=== PATIENT | male | born 1935 | race Caucasian/White ===

== ENCOUNTER 2017-03-15 09:13 | Day surgery (SDC) | payer MEDICARE, MEDICAID, SELFPAY ==
[2017-03-14 13:42] VITALS: BMI 22.0
[2017-03-15] VITALS (7 sets, daily range): BP systolic 103–159; BP diastolic 58–84; PULSE 71–80; RESP 16–18; TEMP 36.4–36.6; O2SAT 93–97
--- NOTE | 2017-03-15 10:39 | HMH.ANESCL ---
[facility] Anesthesia Checklist - Patient Identification Patient Identification: Arm Band - Structural Data Admitted From: Home Planned Operative Procedure/s: Biventricular Pacemaker Consent for Planned Operative Procedure(s) Verified: Yes Verified Documents: Surgical Consent, History and Physical - NPO Status Verified Time NPO: 00:00 - Additional verifications Anesthesia Reactions: No - Airway Assessment C-Spine Mobility Assessed: Yes (MP2) TMJ Mobility Assessed: Yes Dentition: Poor Dentition - Neurological Assessment Level of Consciousness: Awake, Alert - Anesthesia Plan Anesthesia Risk discussed: Yes Anesthesia Plan: Verified ASA Class: III Anesthesia Type: MAC [facility] Anesthesia HX I have reviewed the patient's past medical history: Yes Medical History: Reports:: Atrial Fibrillation, Cancer (colon), Congestive Heart Failure, Chronic Obstructive Pulmonary Disease (COPD), Coronary Artery Disease, Home Oxygen, Hyperlipidemia, Hypertension, Internal Pacemaker, Renal Insufficiency Denies:: Diabetes Mellitus Type 1, Diabetes Mellitus Type 2, MRSA, Seizures Other Medical History: Denies: Blood Transfusion Reaction Laterality Cases: Bilateral: Tonsillectomy Other Surgeries: Yes: Colon Resection, Pacemaker Amputation: No Fractures: No Comment: back, keisha, ankle, cabg *Family Hx:: No significant family history
--- NOTE | 2017-03-15 14:50 | XR_ITS ---
XR chest portable HISTORY: ITS.REASON: POST OP PACEMAKER ORDERING PHYSICIAN: Mick Longoria MD PATIENT AGE: 81 years COMPARISON: None available FINDINGS: There has been insertion of a biventricular pacemaker with a AICD and right atrial lead. These are in good position. No radiographic evidence of complication. No evidence of pneumothorax. There has been a prior median sternotomy. There is borderline cardiomegaly without failure. Patchy density is present in the right infrahilar region and could be due to atelectasis or infiltrate.. IMPRESSION: Status post pacemaker placement as described above with no obvious complications. Atelectasis or infiltrate in the right infrahilar region.
--- NOTE | 2017-05-03 07:20 | HMH.CRT-D ---
[facility] [employer]ACE RELATIONS PROFESSOR-D - RACE RELATIONS PROFESSOR-D Date of Procedure:: 03/15/17 Procedures:: 1. Pocket formation for biventricular pacemaker generator with cardiac resynchronization/defibrillator therapy. 2. Placement atrial sensing and pacing lead into the right atrial appendage. 3. Placement of right ventricular sensing pacing and shocking lead in the right ventricular apex. 4. Placement of left ventricular sensing pacing lead via the coronary sinus. 5. Permanent cardiac resynchronization therapy with AICD implantation/biventricular pacemaker. 6. Extraction of chronic right atrial appendage sensing and pacing lead 7. Extraction of chronic right ventricular sensing pacing lead 8. Removal of old pacemaker generator Indication for test:: Ischemic cardiomyopathy systolic congestive heart failure with ejection fraction less than 35% Widened QRS greater than 120 ms Last 3-4 [place] [facility] congestive heart failure Informed consent:: Obtained prior to procedure. Complications:: None EBL:: Less than 10 ml. Technique:: 1% lidocaine with epinephrine used to anesthetize the left anterior aspect of the chest. Scalpel was used to make the initial cutaneous incision while electrocautery was used to dissect down into the fascia. The fascia was lifted off the pectoralis muscle and digitally manipulated creating a pocket for the pacemaker. The patient was then placed in Trendelenburg position and subclavian vein was accessed via the Seldinger technique on 3 separate occasions. 3 wires were left into the subclavian vein. Wire was placed into the right atrial lead in the screw was retracted into the lead piercing manual pressure the right atrial lead was extracted from the right atrium and explanted from the body. The same technique was then performed with the right ventricular lead and the right ventricular lead was successfully explanted from the patient as well. The right ventricular pacing shocking coil sheath was placed into the subclavian vein and under fluoroscopic guidance the right lingular sensing pacing shocking lead was placed into the right ventricular apex secured into place with the distal screw. After achieving excellent numbers the lead was then secured into placing using 3-0 silk. The lead was secured to the fascia also with heavy silk suture. Prior to the right ventricular lead being secured into place the sheath was peeled away from the subclavian vein. Under fluoroscopic guidance the coronary sinus was cannulated and confirmed with an injection of contrast. An 0.014 wire was then placed distally in the inferior posterior segment of the left ventricle via the coronary sinus and the left ventricular lead was advanced. After achieving excellent thresholds and interrogation numbers the sheath was then peeled away and the lead was then secured into place using silk suture. Following this, the left ventricular coil was secured in place using heavy silk and also secured to the fascia and additional 7 Fijian sheath was then placed over the existing wire and an atrial sensing placing coil was placed in the right atrial appendage after achieving excellent thresholds the sheath was peeled away and the lead was secured to the fascia using heavy silk. After achieving, hemostasis, Ancef was used to flush the pocket and the 3 leads were attached to the RACE RELATIONS PROFESSOR-D generator. The generator was then secured into place by heavy silk suture. Monocryl was used to close the subcutaneous layers while lorenza were used to close the subcutaneous layers while lorenza were used to close the cutaneous layer. Pressurized and the patient was transferred to the postop holding area in stable condition. Impression:: 1. Successful pocket formation for biventricular pacemaker generator with cardiac resynchronization/defibrillator therapy. 2. Successful placement of right atrial sensing and pacing lead into the right atrial appendage. 3. Successful placement of a right ventricula
--- NOTE | 2017-05-03 07:34 | P.PCN_ITS ---
[facility] AIRCRAFT MOTOR MECHANIC-D - AIRCRAFT MOTOR MECHANIC-D Date of Procedure:: 03/15/17 Procedures:: 1. Pocket formation for biventricular pacemaker generator with cardiac resynchronization/defibrillator therapy. 2. Placement atrial sensing and pacing lead into the right atrial appendage. 3. Placement of right ventricular sensing pacing and shocking lead in the right ventricular apex. 4. Placement of left ventricular sensing pacing lead via the coronary sinus. 5. Permanent cardiac resynchronization therapy with AICD implantation/ biventricular pacemaker. 6. Extraction of chronic right atrial appendage sensing and pacing lead 7. Extraction of chronic right ventricular sensing pacing lead 8. Removal of old pacemaker generator Indication for test:: Ischemic cardiomyopathy systolic congestive heart failure with ejection fraction less than 35% Widened QRS greater than 120 ms Last 3-4 [place] [facility] congestive heart failure Informed consent:: Obtained prior to procedure. Complications:: None EBL:: Less than 10 ml. Technique:: 1% lidocaine with epinephrine used to anesthetize the left anterior aspect of the chest. Scalpel was used to make the initial cutaneous incision while electrocautery was used to dissect down into the fascia. The fascia was lifted off the pectoralis muscle and digitally manipulated creating a pocket for the pacemaker. The patient was then placed in Trendelenburg position and subclavian vein was accessed via the Seldinger technique on 3 separate occasions. 3 wires were left into the subclavian vein. Wire was placed into the right atrial lead in the screw was retracted into the lead piercing manual pressure the right atrial lead was extracted from the right atrium and explanted from the body. The same technique was then performed with the right ventricular lead and the right ventricular lead was successfully explanted from the patient as well. The right ventricular pacing shocking coil sheath was placed into the subclavian vein and under fluoroscopic guidance the right lingular sensing pacing shocking lead was placed into the right ventricular apex secured into place with the distal screw. After achieving excellent numbers the lead was then secured into placing using 3-0 silk. The lead was secured to the fascia also with heavy silk suture. Prior to the right ventricular lead being secured into place the sheath was peeled away from the subclavian vein. Under fluoroscopic guidance the coronary sinus was cannulated and confirmed with an injection of contrast. An 0.014 wire was then placed distally in the inferior posterior segment of the left ventricle via the coronary sinus and the left ventricular lead was advanced. After achieving excellent thresholds and interrogation numbers the sheath was then peeled away and the lead was then secured into place using silk suture. Following this, the left ventricular coil was secured in place using heavy silk and also secured to the fascia and additional 7 Maltese sheath was then placed over the existing wire and an atrial sensing placing coil was placed in the right atrial appendage after achieving excellent thresholds the sheath was peeled away and the lead was secured to the fascia using heavy silk. After achieving, hemostasis, Ancef was used to flush the pocket and the 3 leads were attached to the AIRCRAFT MOTOR MECHANIC-D generator. The generator was then secured into place by heavy silk suture. Monocryl was used to close the subcutaneous layers while lorenza were used to close the subcutaneous layers while lorenza were used to close the cutaneous layer. Pressurized and the patient was transferred to the postop holding area in stable condition. Impression::
== END 2017-03-15 15:38 | disposition home or self-care (01) ==
PROVIDERS: PCP Family Medicine; Visit Provider Internal Medicine
PROC: 0JH608Z Insertion of Defibrillator Generator into Chest Subcutaneous Tissue and Fascia, Open Approach (ICD-10-PCS; CPT 33249; principal; 2017-03-15 11:00)
DX: Z45.02 Encounter for adjustment and management of automatic implantable cardiac defibrillator (principal); I50.23 Acute on chronic systolic (congestive) heart failure; I13.0 Hypertensive heart and chronic kidney disease with heart failure and stage 1 through stage 4 chronic kidney disease, or unspecified chronic kidney disease; N18.3 Chronic kidney disease, stage 3 (moderate); I48.92 Unspecified atrial flutter; I47.2 Ventricular tachycardia
CPT/HCPCS: 33225; 33233; 33235; 33249; 71045; 96374; C1769; C1882; C1894; C1895; C1900